=== PATIENT | female | born 1990 | race American Indian/Alaskan Native ===

== ENCOUNTER 2021-08-19 00:35 | Emergency (ER) | payer SELFPAY ==
--- NOTE | 2021-08-19 07:43 | Emergency Department Report ---
ED Psych HPI - General Chief Complaint: Psych Stated Complaint: SI Time Seen by Provider: 08/19/21 02:19 Source: patient, EMS Mode of arrival: Wheelchair - History of Present Illness MD Complaint: suicidal ideation -: unknown Associated Psychiatric Symptoms: suicidal ideation History of same: Yes Improves With: none Worsens With: none Associated Symptoms: denies: confusion, insomnia Treatments Prior to Arrival: none - Related Data Home Medications Medication Instructions Recorded Confirmed Last Taken No Known Home Medications [No 10/25/15 10/25/15 Unknown Reported Home Medications] Allergies Allergy/AdvReac Type Severity Reaction Status Date / Time No Known Allergies Allergy Verified 08/19/21 00:40 ED Review of Systems ROS: Stated complaint: SI Other details as noted in HPI Comment: All other systems reviewed and negative Endocrine: no symptoms reported Gastrointestinal: denies: abdominal pain, nausea, diarrhea Musculoskeletal: denies: back pain, joint swelling, arthralgia Psychiatric: suicidal thoughts ED Past Medical Hx - Past Medical History Previous Medical History?: Yes Hx Psychiatric Treatment: Yes (SCHIZOPHRENIA) - Surgical History Past Surgical History?: No - Social History Smoking Status: Never Smoker Substance Use Type: None - Medications Home Medications: Home Medications Medication Instructions Recorded Confirmed Last Taken Type No Known Home Medications [No 10/25/15 10/25/15 Unknown History Reported Home Medications] ED Physical Exam - General Limitations: No Limitations General appearance: alert, other (Cooperative) - Head Head exam: Present: atraumatic, normocephalic - Eye Eye exam: Present: normal appearance - ENT ENT exam: Present: mucous membranes moist - Neck Neck exam: Present: normal inspection - Respiratory Respiratory exam: Present: normal lung sounds bilaterally. Absent: respiratory distress - Cardiovascular Cardiovascular Exam: Present: regular rate, normal rhythm. Absent: systolic murmur, diastolic murmur, rubs, gallop - GI/Abdominal GI/Abdominal exam: Present: soft, normal bowel sounds - Rectal Rectal exam: Present: deferred - External exam: Present: other (Deferred) - Extremities Exam Extremities exam: Present: normal inspection, full ROM - Back Exam Back exam: Present: normal inspection, full ROM. Absent: tenderness - Neurological Exam Neurological exam: Present: alert, oriented X3 - Psychiatric Psychiatric exam: Present: flat affect - Skin Skin exam: Present: warm, dry ED Course Vital Signs 08/19/21 08/19/21 08/19/21 00:38 03:22 03:42 Temperature 98.1 F 98.7 F Pulse Rate 76 104 H Respiratory 18 18 Rate Blood Pressure 134/98 122/89 [Left] O2 Sat by Pulse 99 97 100 Oximetry 08/19/21 08:27 Temperature 97.2 F L Pulse Rate 97 H Respiratory 18 Rate Blood Pressure 108/64 [Left] O2 Sat by Pulse 97 Oximetry ED Medical Decision Making - Lab Data Result diagrams: 08/19/21 08:35 08/19/21 08:35 - Medical Decision Making The patient was placed on a 1013 and she will be evaluated by mental health Critical care attestation.: If time is entered above; I have spent that time in minutes in the direct care of this critically ill patient, excluding procedure time. ED Disposition Clinical Impression: Suicidal ideation Schizophrenia Qualifiers: Schizophrenia type: unspecified Qualified Code(s): F20.9 - Schizophrenia, unspecified Disposition: 01 HOME / SELF CARE / HOMELESS Is pt being admited?: No Condition: Stable Instructions: Suicidal Feelings: How to Help Yourself Additional Instructions: Professional and Agency Contacts To help [facility] (24/12) [place] Crisis Line: Suicide Prevention Line: Crisis Text Line: Text START to 613416 Emergency: 911 Outpatient [facility] Behavioral Health Resources: [facility]: [facility] [address] [place], [place] [address] [facility] [address] [place] [address] Saturday thru Saturday - 8am - 5pm Call to schedule an assessment for mental health and substance abuse programs PK: [facility] Address: [address] [place] [address] Saturday thru Saturday- 7am-2pm [facility] Address: [address] [place] [address] Saturday thrsaturday: 8:30AM-5PM Referrals: VIRI WILKERSON MD [Primary Care Provider] - 3-5 Days
[2021-08-19 08:28] VITALS: BP 108/64
[2021-08-19 08:38] LABS: Bilirubin,Urine NEG (Negative); Blood,Urine NEG (Negative); Color,Urine Yellow (Yellow); Protein,Urine <15 mg/dL mg/dL (Negative); Urobilinogen,Urine < 2.0 mg/dL (<2.0)
[2021-08-19 08:47] LABS: Amphetamine Screen,Urine Negative; Benzodiazepines Screen,Urine Negative; Cannabinoid Screen,Urine Negative; Cocaine Screen,Urine Negative; Methadone Screen,Urine Negative; Opiate Screen,Urine Negative
[2021-08-19 08:58] LABS: RBC,Urine < 1.0 /HPF (0.0-6.0)
[2021-08-19 09:20] LABS: Basophils % (Auto) 0.6 % (0.0-1.8); Eosinophils # (Auto) 0.2 K/mm3 (0.0-0.4); Eosinophils % (Auto) 4.3 % (0.0-4.3); Hematocrit 36.4 % (30.3-42.9); Hemoglobin 11.9 gm/dl (10.1-14.3); Lymphocytes # (Auto) 1.2 K/mm3 (1.2-5.4); Lymphocytes % (Auto) 23.5 % (13.4-35.0); Mean Corpuscular HGB Conc 33 % (30-34); Mean Corpuscular Volume 89 fl (79-97); Monocytes # (Auto) 0.7 K/mm3 (0.0-0.8); Monocytes % (Auto) 13.6 % (0.0-7.3); Platelet Count 204 K/mm3 (140-440); Red Blood Count 4.11 M/mm3 (3.65-5.03); Red Cell Distribution Width 15.4 % (13.2-15.2)
[2021-08-19 09:33] LABS: Blood Urea Nitrogen 17 mg/dL (7-17); Calcium 9.5 mg/dL (8.4-10.2); Hemolysis Index 1
[2021-08-19 09:37] LABS: BUN/Creatinine Ratio 24
--- NOTE | 2021-08-19 10:30 | Consultation ---
History of Present Illness - Reason for Consult Consult date: 08/19/21 Reason for consult: Suicidal ideation - History of Present Psychiatric Illness The patient is a 31 year old female with history of schizophrenia who present to the ED with suicidal ideation. In my encounter with the patient, she is calm. The patient states she did not like her skilled nursing; states she told the officer that she was suicidal. The patient reports that she [facility] a [facility] which she states she last received last week. The patient reports that she wants to go to the custodial. She denies any current suicidal/homicidal ideation and denies hallucinations. Diagnoses: Schizophrenia Suicide attempts or Self-harm behavior: Denies Prior psychiatric hospitalizations: Yes Substance Abuse history: Denies Previous psychiatric medications tried: Haldol Outpatient treatment: Unknown PAST MEDICAL HISTORY: unknown Family Psychiatric History: None reported or documented SOCIAL HISTORY Marital Status: Single Living Arrangements: Homeless Employment Status: unemployed Access to guns/weapons: Denies Education: 12th grade History of Abuse: none reported Legal History: none reported REVIEW OF SYSTEMS Constitutional: Negative for weight loss ENT: Negative for stridor Respiratory: Negative for cough or hemoptysis All other systems reviewed and are negative MENTAL STATUS EXAMINATION General Appearance and Behavior: Age appropriate, good hygiene, wearing appropriate clothes, calm, cooperative Cooperation: Participating/engaged Psychomotor Behavior: Normal Mood: "ok" Affect and affective range: congruent with mood Thought Process: Goal directed Thought Content: Reality oriented Speech: Normal volume, Regular rate and rhythm, Suicidal Ideation: Denies Homicidal Ideation: Denies Hallucinations: Denies Delusions: None elicited Impulse Control: Unimpaired Insight and Judgment: Limited insight and judgment, Memory: Normal, Attention: Normal Orientation: Alert, oriented Assessment and Plan (1)Hx of Schizophrenia Current Visit: Yes Status: Acute Case management Continue home meds Treatment Plan The patient needs to follow up with his outpatient psychiatrist and therapist. Continue home meds Disposition: Do not recommend psychiatric inpatient admission at this time. [facility] will provide patient with psychiatric out patient resources. Will sign off. Thanks Case staffed with Dr. Ya Medications and Allergies Allergies Allergy/AdvReac Type Severity Reaction Status Date / Time No Known Allergies Allergy Verified 08/19/21 00:40 Home Medications Medication Instructions Recorded Confirmed Last Taken Type No Known Home Medications [No 10/25/15 10/25/15 Unknown History Reported Home Medications] Mental Status Exam - Vital signs Last Vital Signs Temp 97.2 F L 08/19/21 08:27 Pulse 97 H 08/19/21 08:27 Resp 18 08/19/21 08:27 BP 108/64 08/19/21 08:27 Pulse Ox 97 08/19/21 08:27 Results Result Diagrams: 08/19/21 08:35 08/19/21 08:35 Abnormal lab results 08/19/21 08/19/21 08/19/21 Range/Units 08:35 08:35 08:35 RDW 15.4 H (13.2-15.2) % [place] % (Auto) 13.6 H (0.0-7.3) % Glucose 121 H (65-100) mg/dL Salicylates < 0.3 L (2.8-20.0) mg/dL Acetaminophen (10.0-30.0) ug/mL 08/19/21 Range/Units 08:35 RDW (13.2-15.2) % [place] % (Auto) (0.0-7.3) % Glucose (65-100) mg/dL Salicylates (2.8-20.0) mg/dL Acetaminophen 5.0 L (10.0-30.0) ug/mL All other labs normal.
== END 2021-08-19 12:39 | disposition home or self-care (01) ==
LOC: ED 00:35
DX: R45.851 Suicidal ideations (principal); F20.9 Schizophrenia, unspecified
CPT/HCPCS: 36415; 80048; 80307; 80320; 81001; 84703; 85025; 99284; G0480